=== PATIENT | male | born 1945 | race Caucasian/White ===

== ENCOUNTER → 2017-06-24 | Outpatient (CLI) | payer MEDICARE, OTHER ==
[2017-06-24 10:24] LABS: HEMATOCRIT 39.7 % (42.0-52.0); MEAN CORPUSCULAR HEMOGLOBIN 31.8 pg (27.0-33.0); MEAN CORPUSCULAR HGB CONC 32.7 g/dl (32.0-36.5); MEAN CORPUSCULAR VOLUME 97.1 fl (80.0-96.0); PLATELET COUNT, AUTOMATED 178 10^3/uL (150-450); RED BLOOD COUNT 4.09 10^6/uL (4.30-6.10); RED CELL DISTRIBUTION WIDTH 13.8 % (11.5-14.5); WHITE BLOOD COUNT 6.7 10^3/uL (4.0-10.0)
[2017-06-24 10:38] LABS: INR 1.27; PROTHROMBIN TIME 16.2 SECONDS (12.4-14.5)
[2017-06-24 10:53] LABS: ALBUMIN 3.7 GM/DL (3.2-5.2); ALBUMIN/GLOBULIN RATIO 1.32 (1.00-1.93); ALKALINE PHOSPHATASE 61 U/L (45-117); ALT/SGPT 26 U/L (12-78); ANION GAP 7 MEQ/L (8-16); AST/SGOT 16 U/L (7-37); BLOOD UREA NITROGEN 18 MG/DL (7-18); CALCIUM LEVEL 9.1 MG/DL (8.8-10.2); CARBON DIOXIDE LEVEL 30 MEQ/L (21-32); CHLORIDE LEVEL 107 MEQ/L (98-107); CHOLESTEROL LEVEL 136 MG/DL (<200); CHOLESTEROL RISK RATIO 1.658 (<5); CREATININE FOR GFR 1.07 MG/DL (0.70-1.30); GLOMERULAR FILTRATION RATE > 60.0 (>49); GLUCOSE, FASTING 110 MG/DL (80-110); HDL CHOLESTEROL 82 MG/DL (>40); LDL CHOLESTEROL 34.2 MG/DL (<100); NON-HDL-C 54 MG/DL; POTASSIUM SERUM 4.3 MEQ/L (3.5-5.1); SODIUM LEVEL 144 MEQ/L (136-145); TOTAL PROTEIN 6.5 GM/DL (6.4-8.2); TRIGLYCERIDES LEVEL 99 MG/DL (<150)
== END ==
LOC: M LAB 09:09
DX: I10 Essential (primary) hypertension (principal); E78.00 Pure hypercholesterolemia, unspecified; Z79.01 Long term (current) use of anticoagulants
CPT/HCPCS: 71046

== ENCOUNTER 2017-07-28 06:43 | Day surgery (SDC) | payer MEDICARE, OTHER ==
[~2017-07-28 06:43] MED LIST: ACETAMINOPHEN 325 MG TAB PO
[2017-07-28] MEDS ORDERED: PHENYLEPHRINE HCL 10 % OPHTH. SOL 5ML OD (07:00)
[2017-07-28] MEDS ORDERED: PROPARACAINE 0.5% OPHTH SOL 15ML OD (07:01)
[2017-07-28] MEDS: CYCLOPENTOLATE 2% OPHTH SOLN 2ML BTL OD (07:38)
[2017-07-28] MEDS: PHENYLEPHRINE 2.5% OPHTH SOL 2ML OD (07:38)
[2017-07-28] MEDS: TROPICAMIDE 1% OPHTH SOLN 2ML OD (07:38)
[2017-07-28] MEDS: LIDOCAINE 3.5 % 1ML OPHTH TOPICAL GEL OU (07:39)
[2017-07-28] MEDS: OFLOXACIN 0.3 % (OCUFLOX) OPTH SOL 5ML OD (07:39)
[2017-07-28] MEDS: LIDOCAINE 1% SDV 5 ML VIAL As Ordered (08:48)
[2017-07-28] MEDS: POVIDONE-IODINE 5% OPHTH PREP SOL 30ML As Ordered (08:48)
[2017-07-28] MEDS: HEALON DUET (HEALON 10MG/ML 0.55ML & HEALON ENDOCOAT 30MG/ML 0.85ML) As Ordered (08:48)
[2017-07-28] MEDS: ACETYLCHOLINE OPHTH SOLN 1% 2ML (MIOCHOL-E) As Ordered (08:48)
[2017-07-28] MEDS: BALANCED SALT IRRIGATION SOLUTION 500ML BAG (FOR OR EYE MACHINE) As Ordered (08:49)
[2017-07-28] MEDS: CEFUROXIME 1MG/0.1ML INTRACAMERAL INJ As Ordered (08:49)
[2017-07-28] MEDS ORDERED: fentaNYL 100 MCG/2 ML INJECTION (J3010) As Ordered (09:08)
[2017-07-28] MEDS ORDERED: MIDAZOLAM INJ 2 MG/2 ML VIAL (J2250) As Ordered (09:08)
[2017-07-28] MEDS ORDERED: TRIMETHOBENZAMIDE 300 MG CAP PO (09:30)
[2017-07-28] MEDS: AcetaZOLAMIDE 500 MG ER CAP PO (09:30)
[2017-07-28] MEDS: KETOROLAC 0.5% OPHTH SOLN OD (09:35)
== END 2017-07-28 09:55 | disposition home or self-care (01) ==
LOC: M SDC 06:43
DX: H25.11 Age-related nuclear cataract, right eye (principal); I48.91 Unspecified atrial fibrillation; I10 Essential (primary) hypertension; Z95.810 Presence of automatic (implantable) cardiac defibrillator; E78.5 Hyperlipidemia, unspecified; Z79.01 Long term (current) use of anticoagulants; Z79.899 Other long term (current) drug therapy; G47.30 Sleep apnea, unspecified
CPT/HCPCS: 66984

== ENCOUNTER 2017-09-01 08:51 | Day surgery (SDC) | payer MEDICARE, OTHER ==
[~2017-09-01 08:51] MED LIST changes: +MIDAZOLAM INJ 2 MG/2 ML VIAL (J2250) As Ordered; +PHENYLEPHRINE HCL 10 % OPHTH. SOL 5ML OS; +PROPARACAINE 0.5% OPHTH SOL 15ML OS; +fentaNYL 100 MCG/2 ML INJECTION (J3010) As Ordered
[2017-09-01] MEDS ORDERED: TRIMETHOBENZAMIDE 300 MG CAP PO (09:00)
[2017-09-01] MEDS ORDERED: TROPICAMIDE 1% OPHTH SOLN 2ML As Ordered (09:32)
[2017-09-01] MEDS ORDERED: PHENYLEPHRINE 2.5% OPHTH SOL 2ML As Ordered (09:32)
[2017-09-01] MEDS ORDERED: OFLOXACIN 0.3 % (OCUFLOX) OPTH SOL 5ML As Ordered (09:32)
[2017-09-01] MEDS ORDERED: CYCLOPENTOLATE 2% OPHTH SOLN 2ML BTL As Ordered (09:32)
[2017-09-01] MEDS: TROPICAMIDE 1% OPHTH SOLN 2ML OS (09:40)
[2017-09-01] MEDS: CYCLOPENTOLATE 2% OPHTH SOLN 2ML BTL OS (09:40)
[2017-09-01] MEDS: PHENYLEPHRINE 2.5% OPHTH SOL 2ML OS (09:40)
[2017-09-01] MEDS: LIDOCAINE 3.5 % 1ML OPHTH TOPICAL GEL OU (09:41)
[2017-09-01] MEDS: OFLOXACIN 0.3 % (OCUFLOX) OPTH SOL 5ML OS (09:41)
[2017-09-01] MEDS: BALANCED SALT IRRIGATION SOLUTION 500ML BAG (FOR OR EYE MACHINE) As Ordered (11:17)
[2017-09-01] MEDS: POVIDONE-IODINE 5% OPHTH PREP SOL 30ML As Ordered (11:17)
[2017-09-01] MEDS: CEFUROXIME 1MG/0.1ML INTRACAMERAL INJ As Ordered (11:18)
[2017-09-01] MEDS: HEALON DUET (HEALON 10MG/ML 0.55ML & HEALON ENDOCOAT 30MG/ML 0.85ML) As Ordered (11:18)
[2017-09-01] MEDS: LIDOCAINE 1% SDV 5 ML VIAL As Ordered (11:18)
[2017-09-01] MEDS: KETOROLAC 0.5% OPHTH SOLN OS (11:54)
[2017-09-01] MEDS: AcetaZOLAMIDE 500 MG ER CAP PO (11:54)
== END 2017-09-01 12:12 | disposition home or self-care (01) ==
LOC: M SDC 08:51
DX: H25.12 Age-related nuclear cataract, left eye (principal); I48.91 Unspecified atrial fibrillation; I10 Essential (primary) hypertension; E78.5 Hyperlipidemia, unspecified; G47.30 Sleep apnea, unspecified; Z79.02 Long term (current) use of antithrombotics/antiplatelets; Z79.899 Other long term (current) drug therapy; Z95.810 Presence of automatic (implantable) cardiac defibrillator
CPT/HCPCS: 66984

== ENCOUNTER 2022-04-21 21:38 | Inpatient (IN) | payer MEDICARE, OTHER ==
[~2022-04-21] VITALS: Ht 180.3 cm; Wt 86.4 kg
[~2022-04-21 21:38] MED LIST changes: -ACETAMINOPHEN 325 MG TAB PO; +AMIO200T49 PO; +ATOR1TAB19 PO; +CORE12.5 PO; +KLOR1CAP PO; -MIDAZOLAM INJ 2 MG/2 ML VIAL (J2250) As Ordered; +MULT1TAB10 PO; +OMEP1CAP73 PO; -PHENYLEPHRINE HCL 10 % OPHTH. SOL 5ML OS; +PRAD150C6 PO; +PRESCAP PO; -PROPARACAINE 0.5% OPHTH SOL 15ML OS; +RAMI1CAP26 PO; +TORS20TA2 PO; +VITA100067 PO; -fentaNYL 100 MCG/2 ML INJECTION (J3010) As Ordered
[2022-04-21] MEDS ORDERED: MORPHINE 4 MG/ML 1ML VIAL/SYRINGE IV ONE (23:05)
[2022-04-21 23:18] LABS: BASO # 0.1 10^3/uL (0.0-0.2); BASO % 0.6 % (0.0-1.0); EOS # 0.3 10^3/uL (0.0-0.5); EOS % 3.4 % (0.0-3.0); HEMOGLOBIN 11.7 g/dl (13.5-17.5); LYMPH # 0.9 10^3/uL (1.5-5.0); MEAN CORPUSCULAR HEMOGLOBIN 32.3 pg (27.0-33.0); MEAN CORPUSCULAR HGB CONC 32.5 g/dl (32.0-36.5); MEAN CORPUSCULAR VOLUME 99.4 fl (80.0-96.0); MONO # 0.8 10^3/uL (0.0-0.8); MONO % 8.4 % (2.0-8.0); NEUTROPHILS # 7.4 10^3/uL (1.5-8.5); NEUTROPHILS % 78.3 % (36.0-66.0); PLATELET COUNT, AUTOMATED 210 10^3/uL (150-450); RED BLOOD COUNT 3.62 10^6/uL (4.30-6.10); WHITE BLOOD COUNT 9.5 10^3/uL (4.0-10.0)
[2022-04-21] MEDS ORDERED: MORPHINE 2 MG/ML 1ML VIAL IV PRN (23:30)
[2022-04-21] MEDS ORDERED: MORPHINE 4 MG/ML 1ML VIAL/SYRINGE IV PRN (23:30)
[2022-04-21 23:35] LABS: INR 1.51; PROTHROMBIN TIME 18.5 SECONDS (12.5-14.5)
[2022-04-21] MEDS ORDERED: ONDANSETRON 4MG 2ML VIAL IV PRN (23:35)
[2022-04-21 23:36] LABS: PARTIAL THROMBOPLASTIN TIME 30.5 SECONDS (24.8-34.2)
[2022-04-21] MEDS ORDERED: LR 1,000 ML IV SCH (23:59)
[2022-04-22] VITALS (9 sets, daily range): BP systolic 90–109; BP diastolic 40–80; O2SAT 93
[2022-04-22 01:01] LABS: BLOOD UREA NITROGEN 21 MG/DL (7-18); CALCIUM LEVEL 8.5 MG/DL (8.8-10.2); CARBON DIOXIDE LEVEL 29 MEQ/L (21-32); CHLORIDE LEVEL 107 MEQ/L (98-107); CK-MB VALUE MASS < 1.0 NG/ML (<3.6); CPK CREATINE PHOSPHOKINASE 106 U/L (39-308); CREATININE FOR GFR 1.24 MG/DL (0.70-1.30); GLOMERULAR FILTRATION RATE > 60.0 (>42); GLUCOSE, FASTING 129 MG/DL (70-100); MB/CK RELATIVE INDEX 0.94 (< OR =4); NT-PRO BNP 519 PG/ML (<125); POTASSIUM SERUM 3.8 MEQ/L (3.5-5.1); SODIUM LEVEL 143 MEQ/L (136-145)
[2022-04-22] MEDS ORDERED: FAMO1TAB11 PO (04:30)
[2022-04-22] MEDS ORDERED: POTA1TAB21 PO (04:30)
[2022-04-22] MEDS ORDERED: HOME MED LIST COMPLETE! XX SCH (04:30)
[2022-04-22] MEDS ORDERED: XARE20TA PO (04:30)
[2022-04-22] MEDS ORDERED: VITA200032 PO (04:30)
[2022-04-22] MEDS ORDERED: JARD1TAB PO (04:30)
[2022-04-22] MEDS ORDERED: ENTR1TAB4 PO (04:30)
[2022-04-22] MEDS ORDERED: ROSU5TAB5 PO (04:30)
[2022-04-22] MEDS: CARVedilol 12.5 MG TAB PO SCH ×2 (09:00→20:46)
[2022-04-22] MEDS: TORSEMIDE 20 MG TAB PO SCH (09:00)
[2022-04-22] MEDS: AMIODARONE 200 MG TAB (PACERONE) PO SCH (09:00)
[2022-04-22] MEDS: ENTRESTO 97-103MG TABLET (SACUBITRIL/VALSARTAN) PO SCH (09:00)
[2022-04-22] MEDS ORDERED: ONDANSETRON 4MG 2ML VIAL As Ordered ONE (09:24)
[2022-04-22] MEDS ORDERED: propofoL 200 MG/20 ML VIAL As Ordered ONE (09:24)
[2022-04-22] MEDS ORDERED: dexameTHASONE 4 MG/ML 1ML VIAL (J1100 PER 1MG) As Ordered ONE (09:24)
[2022-04-22] MEDS ORDERED: SUGAMMADEX SODIUM 500 MG/5 ML VIAL (BRIDION) As Ordered ONE (09:24)
[2022-04-22] MEDS ORDERED: fentaNYL 100 MCG/2 ML INJECTION As Ordered ONE (09:24)
[2022-04-22] MEDS ORDERED: ROCURONIUM BROMIDE 50 MG/5 ML VIAL As Ordered ONE (09:24)
[2022-04-22] MEDS ORDERED: LIDOCAINE 2% 100MG/5ML SDV (FOR ANES.) As Ordered ONE (09:25)
[2022-04-22] MEDS ORDERED: ceFAZolin 2 GM/D5W 50 ML IV BAG (J0690 PER 500MG) As Ordered ONE (10:19)
[2022-04-22] MEDS ORDERED: PHENYLephrine 500MCG 5ML (100MCG/ML) SYRINGE As Ordered ONE (10:41)
[2022-04-22] MEDS ORDERED: PHENYLEPHRINE 10MG/ML 1ML VIAL As Ordered ONE (10:41)
[2022-04-22] MEDS ORDERED: ePHEDrine SULFATE 25 MG/5 ML(5MG/ML) SYRINGE As Ordered ONE (10:41)
[2022-04-22] MEDS ORDERED: ACETAMINOPHEN 1000MG 100ML IV BAG As Ordered ONE (10:49)
[2022-04-22] MEDS ORDERED: LR 1,000 ML IV SCH (11:30)
[2022-04-22] MEDS ORDERED: ONDANSETRON 4MG 2ML VIAL IV PRN (11:30)
[2022-04-22] MEDS ORDERED: MORPHINE 2 MG/ML 1ML VIAL IV PRN (11:30)
[2022-04-22] MEDS: oxyCODONE 5MG TAB PO PRN ×2 (12:14→13:02)
[2022-04-22] MEDS: fentaNYL 100 MCG/2 ML INJECTION IV PRN ×2 (12:14→12:47)
[2022-04-22] MEDS ORDERED: LR 1,000 ML IV ONE (14:10)
[2022-04-22] MEDS: FAMOTIDINE 20 MG TAB PO SCH ×2 (14:30→20:45)
[2022-04-22] MEDS: POTASSIUM CHLORIDE 10MEQ SR TABLET PO SCH ×2 (14:30→20:45)
[2022-04-22] MEDS: DOCUSATE SODIUM 100MG CAPSULE PO SCH ×2 (14:30→20:45)
[2022-04-22] MEDS: LR 1,000 ML IV SCH (17:25)
[2022-04-22] MEDS: ACETAMINOPHEN TAB 650MG DOSE (2X325MG) PO PRN (20:52)
[2022-04-22] MEDS ORDERED: ROSUVASTATIN 10 MG TAB (CRESTOR) PO SCH (21:00)
[2022-04-22] MEDS ORDERED: RIVAROXABAN 20MG TAB (XARELTO) PO SCH (21:00)
[2022-04-23] MEDS: ACETAMINOPHEN TAB 650MG DOSE (2X325MG) PO PRN ×2 (01:16→09:17)
[2022-04-23 01:55] VITALS: O2SAT 95
[2022-04-23 02:00] VITALS: BP 114/55
[2022-04-23 06:00] VITALS: BP_SYST 84; BP_SYST 94; BP_DIAS 46
[2022-04-23] MEDS: LR 1,000 ML IV SCH (06:10)
[2022-04-23 08:05] VITALS: BP 102/81
[2022-04-23 08:45] VITALS: BP 102/81
[2022-04-23] MEDS: CARVedilol 12.5 MG TAB PO SCH (08:45)
[2022-04-23] MEDS: TORSEMIDE 20 MG TAB PO SCH (09:00)
[2022-04-23] MEDS: ENTRESTO 97-103MG TABLET (SACUBITRIL/VALSARTAN) PO SCH (09:00)
[2022-04-23] MEDS: DOCUSATE SODIUM 100MG CAPSULE PO SCH (09:16)
[2022-04-23] MEDS: FAMOTIDINE 20 MG TAB PO SCH (09:16)
[2022-04-23] MEDS: POTASSIUM CHLORIDE 10MEQ SR TABLET PO SCH (09:17)
[2022-04-23] MEDS: AMIODARONE 200 MG TAB (PACERONE) PO SCH (09:17)
[2022-04-23 09:20] VITALS: BP 96/52
[2022-04-23] MEDS ORDERED: traMADol 50 MG TAB PO ONE (12:25)
== END 2022-04-23 12:25 | DRG 481 ==
LOC: EDBD 21:38 → M ED 21:38 → M ED INP 23:30 → M MS5PR 04-22 14:00 → ENRESERV 04-22 14:30 → CANRESERV 04-22 14:30
PROVIDERS: ADMIT Family Medicine; ATTEND Internal Medicine
PROC: BQ10ZZZ Fluoroscopy of Right Hip (ICD-10-PCS; 2022-04-22)
PROC: 0QS606Z Reposition Right Upper Femur with Intramedullary Internal Fixation Device, Open Approach (ICD-10-PCS; principal; 2022-04-22 15:00)
DX: S72.141A Displaced intertrochanteric fracture of right femur, initial encounter for closed fracture (principal); I50.22 Chronic systolic (congestive) heart failure; I48.91 Unspecified atrial fibrillation; Z95.810 Presence of automatic (implantable) cardiac defibrillator; I25.10 Atherosclerotic heart disease of native coronary artery without angina pectoris; I11.0 Hypertensive heart disease with heart failure; E78.5 Hyperlipidemia, unspecified; W10.8XXA Fall (on) (from) other stairs and steps, initial encounter; Y92.009 Unspecified place in unspecified non-institutional (private) residence as the place of occurrence of the external cause; Z98.49 Cataract extraction status, unspecified eye; K21.9 Gastro-esophageal reflux disease without esophagitis; Z79.01 Long term (current) use of anticoagulants; Z79.899 Other long term (current) drug therapy; Z20.822 Contact with and (suspected) exposure to COVID-19

== ENCOUNTER 2022-04-23 13:40 | Inpatient (IN) | payer MEDICARE, OTHER ==
[~2022-04-23] VITALS: Ht 180.3 cm; Wt 122.8 kg
[2022-04-23 13:35] VITALS: BP 126/58
[~2022-04-23 13:40] MED LIST changes: +ENTR1TAB4 PO; +FAMO1TAB11 PO; +JARD1TAB PO; +POTA1TAB21 PO; +ROSU5TAB5 PO; +VITA200032 PO; +XARE20TA PO
[2022-04-23 14:00] VITALS: BP 114/55
[2022-04-23] MEDS ORDERED: DEXTROSE 50% 50 ML SYRINGE IV PRN (14:55)
[2022-04-23] MEDS ORDERED: GLUCAGON INJ 1MG VIAL SC PRN (14:55)
[2022-04-23] MEDS ORDERED: GLUCOSE 4GM CHEW TABLET PO PRN (14:55)
[2022-04-23] MEDS ORDERED: HOME MED LIST COMPLETE! XX SCH (15:05)
[2022-04-23] MEDS ORDERED: PILL CUTTER 1 EACH XX PRN (15:25)
[2022-04-23] MEDS: REMEDY PHYTOPLEX Z-GUARD PASTE 113GM TUBE (FROM STOREROOM PRODUCT) TOP SCH ×2 (16:00→21:00)
[2022-04-23] MEDS: ACETAMINOPHEN 500 MG TAB PO SCH ×2 (16:27→21:00)
[2022-04-23] MEDS ORDERED: INSULIN LISPRO (NovoLOG) PER UNIT SC SCH ×2 (17:30→21:00)
[2022-04-23 18:00] VITALS: BP 102/52
[2022-04-23] MEDS: RIVAROXABAN 20MG TAB (XARELTO) PO SCH (18:50)
[2022-04-23] MEDS: CARVedilol 6.25 MG TAB PO SCH (20:54)
[2022-04-23] MEDS: ROSUVASTATIN 10 MG TAB (CRESTOR) PO SCH (20:57)
[2022-04-23] MEDS: DOCUSATE SODIUM 100MG CAPSULE PO SCH (20:57)
[2022-04-23] MEDS: FAMOTIDINE 20 MG TAB PO SCH (20:57)
[2022-04-23] MEDS: POTASSIUM CHLORIDE 10MEQ SR TABLET PO SCH (20:57)
[2022-04-23] MEDS: SENNA 8.6 MG TAB (SENOKOT) PO SCH (20:57)
[2022-04-23] MEDS: RAMELTEON 8 MG TAB (ROZEREM) PO PRN (20:57)
[2022-04-24 05:53] LABS: BASO # 0.1 10^3/uL (0.0-0.2); BASO % 0.5 % (0.0-1.0); EOS # 0.2 10^3/uL (0.0-0.5); EOS % 1.2 % (0.0-3.0); HEMATOCRIT 28.8 % (42.0-52.0); HEMOGLOBIN 8.8 g/dl (13.5-17.5); LYMPH # 1.5 10^3/uL (1.5-5.0); LYMPH % 11.9 % (24.0-44.0); MEAN CORPUSCULAR HEMOGLOBIN 31.8 pg (27.0-33.0); MEAN CORPUSCULAR HGB CONC 30.6 g/dl (32.0-36.5); MONO % 14.8 % (2.0-8.0); NEUTROPHILS # 8.7 10^3/uL (1.5-8.5); NEUTROPHILS % 70.6 % (36.0-66.0); PLATELET COUNT, AUTOMATED 208 10^3/uL (150-450); RED BLOOD COUNT 2.77 10^6/uL (4.30-6.10); WHITE BLOOD COUNT 12.3 10^3/uL (4.0-10.0)
[2022-04-24 06:00] VITALS: BP 114/54
[2022-04-24 06:37] LABS: ALBUMIN 2.5 GM/DL (3.2-5.2); ALKALINE PHOSPHATASE 50 U/L (45-117); ALT/SGPT 36 U/L (12-78); AST/SGOT 48 U/L (7-37); BLOOD UREA NITROGEN 20 MG/DL (7-18); CALCIUM LEVEL 8.6 MG/DL (8.8-10.2); CARBON DIOXIDE LEVEL 28 MEQ/L (21-32); CHLORIDE LEVEL 111 MEQ/L (98-107); GLOMERULAR FILTRATION RATE > 60.0 (>42); GLUCOSE, FASTING 146 MG/DL (70-100); MONO # 1.8 10^3/uL (0.0-0.8); POTASSIUM SERUM 4.6 MEQ/L (3.5-5.1); SODIUM LEVEL 143 MEQ/L (136-145); TOTAL PROTEIN 5.3 GM/DL (6.4-8.2)
[2022-04-24] MEDS: REMEDY PHYTOPLEX Z-GUARD PASTE 113GM TUBE (FROM STOREROOM PRODUCT) TOP SCH ×3 (09:00→20:25)
[2022-04-24] MEDS ORDERED: TORSEMIDE 20 MG TAB PO SCH (09:00)
[2022-04-24] MEDS: CARVedilol 6.25 MG TAB PO SCH (09:52)
[2022-04-24] MEDS: AMIODARONE 200 MG TAB (PACERONE) PO SCH (09:52)
[2022-04-24] MEDS: DOCUSATE SODIUM 100MG CAPSULE PO SCH ×2 (09:52→20:23)
[2022-04-24] MEDS: POTASSIUM CHLORIDE 10MEQ SR TABLET PO SCH ×2 (09:52→20:24)
[2022-04-24] MEDS: FAMOTIDINE 20 MG TAB PO SCH ×2 (09:52→20:24)
[2022-04-24] MEDS: ACETAMINOPHEN 500 MG TAB PO SCH ×3 (09:53→21:00)
[2022-04-24] MEDS: oxyCODONE 5MG TAB PO PRN ×4 (09:57→20:25)
[2022-04-24] MEDS: TORSEMIDE 20 MG TAB PO SCH (12:00)
[2022-04-24 12:54] VITALS: BP 104/56
[2022-04-24] MEDS ORDERED: GLUCOSE 4GM CHEW TABLET PO PRN (12:55)
[2022-04-24] MEDS ORDERED: GLUCAGON INJ 1MG VIAL SC PRN (12:55)
[2022-04-24] MEDS ORDERED: DEXTROSE 50% 50 ML SYRINGE IV PRN (12:55)
[2022-04-24 13:55] VITALS: BP 111/56
[2022-04-24] MEDS: INSULIN LISPRO (NovoLOG) PER UNIT SC SCH ×2 (17:30→20:25)
[2022-04-24] MEDS: RIVAROXABAN 20MG TAB (XARELTO) PO SCH (17:44)
[2022-04-24 20:00] VITALS: BP 99/54
[2022-04-24] MEDS: RAMELTEON 8 MG TAB (ROZEREM) PO PRN (20:23)
[2022-04-24] MEDS: SENNA 8.6 MG TAB (SENOKOT) PO SCH (20:24)
[2022-04-24] MEDS: ROSUVASTATIN 10 MG TAB (CRESTOR) PO SCH (20:24)
[2022-04-24] MEDS: CARVedilol 12.5 MG TAB PO SCH (20:26)
[2022-04-25 06:00] VITALS: BP 105/55
[2022-04-25] MEDS: oxyCODONE 5MG TAB PO PRN ×4 (06:51→17:03)
[2022-04-25] MEDS: INSULIN LISPRO (NovoLOG) PER UNIT SC SCH ×4 (07:30→21:00)
[2022-04-25] MEDS: CARVedilol 12.5 MG TAB PO SCH ×2 (09:00→21:00)
[2022-04-25] MEDS: REMEDY PHYTOPLEX Z-GUARD PASTE 113GM TUBE (FROM STOREROOM PRODUCT) TOP SCH ×3 (09:00→21:00)
[2022-04-25] MEDS: DOCUSATE SODIUM 100MG CAPSULE PO SCH ×2 (09:56→21:32)
[2022-04-25] MEDS: POTASSIUM CHLORIDE 10MEQ SR TABLET PO SCH ×2 (09:57→21:30)
[2022-04-25] MEDS: FAMOTIDINE 20 MG TAB PO SCH ×2 (09:57→21:32)
[2022-04-25] MEDS: AMIODARONE 200 MG TAB (PACERONE) PO SCH (09:58)
[2022-04-25] MEDS: ACETAMINOPHEN 500 MG TAB PO SCH ×3 (09:58→21:32)
[2022-04-25] MEDS: TORSEMIDE 20 MG TAB PO SCH (11:58)
[2022-04-25 11:59] VITALS: BP 96/54
[2022-04-25 14:00] VITALS: BP 106/51
[2022-04-25] MEDS: RIVAROXABAN 20MG TAB (XARELTO) PO SCH (17:03)
[2022-04-25 20:00] VITALS: BP 98/56
[2022-04-25] MEDS: SENNA 8.6 MG TAB (SENOKOT) PO SCH (21:32)
[2022-04-25] MEDS: ROSUVASTATIN 10 MG TAB (CRESTOR) PO SCH (21:33)
[2022-04-25] MEDS: MIRALAX *UNIT DOSE* 17GM PACKET PO PRN (21:34)
[2022-04-26 06:00] VITALS: BP 110/58
[2022-04-26] MEDS: DOCUSATE SODIUM 100MG CAPSULE PO SCH ×2 (08:54→21:05)
[2022-04-26] MEDS: FAMOTIDINE 20 MG TAB PO SCH ×2 (08:55→21:05)
[2022-04-26] MEDS: POTASSIUM CHLORIDE 10MEQ SR TABLET PO SCH ×2 (08:55→11:44)
[2022-04-26] MEDS: AMIODARONE 200 MG TAB (PACERONE) PO SCH (08:55)
[2022-04-26] MEDS: CARVedilol 12.5 MG TAB PO SCH ×2 (08:56→21:06)
[2022-04-26] MEDS: ACETAMINOPHEN 500 MG TAB PO SCH ×3 (08:56→21:05)
[2022-04-26] MEDS: REMEDY PHYTOPLEX Z-GUARD PASTE 113GM TUBE (FROM STOREROOM PRODUCT) TOP SCH ×3 (08:57→21:07)
[2022-04-26] MEDS: MIRALAX *UNIT DOSE* 17GM PACKET PO PRN (11:43)
[2022-04-26] MEDS: SENNA 8.6 MG TAB (SENOKOT) PO SCH ×2 (11:43→21:07)
[2022-04-26] MEDS: TORSEMIDE 20 MG TAB PO SCH (11:44)
[2022-04-26 11:49] VITALS: BP 105/53
[2022-04-26 11:53] LABS: BLOOD UREA NITROGEN 22 MG/DL (7-18); CALCIUM LEVEL 8.1 MG/DL (8.8-10.2); CARBON DIOXIDE LEVEL 28 MEQ/L (21-32); CHLORIDE LEVEL 109 MEQ/L (98-107); CREATININE FOR GFR 0.93 MG/DL (0.70-1.30); GLOMERULAR FILTRATION RATE > 60.0 (>42); GLUCOSE, FASTING 131 MG/DL (70-100); POTASSIUM SERUM 4.6 MEQ/L (3.5-5.1); SODIUM LEVEL 140 MEQ/L (136-145)
[2022-04-26 14:00] VITALS: BP 113/55
[2022-04-26] MEDS: oxyCODONE 5MG TAB PO PRN ×2 (14:26→21:06)
[2022-04-26] MEDS: RIVAROXABAN 20MG TAB (XARELTO) PO SCH (17:58)
[2022-04-26 20:00] VITALS: BP 110/64
[2022-04-26] MEDS: RAMELTEON 8 MG TAB (ROZEREM) PO PRN (21:05)
[2022-04-26] MEDS: ROSUVASTATIN 10 MG TAB (CRESTOR) PO SCH (21:06)
[2022-04-27 05:54] VITALS: BP 98/60
[2022-04-27 05:56] VITALS: BP_SYST 142; BP_SYST 98; BP_DIAS 60; BP_DIAS 82
[2022-04-27] MEDS: FAMOTIDINE 20 MG TAB PO SCH ×2 (08:30→20:57)
[2022-04-27] MEDS: AMIODARONE 200 MG TAB (PACERONE) PO SCH (08:30)
[2022-04-27] MEDS: ACETAMINOPHEN 500 MG TAB PO SCH ×3 (08:30→20:56)
[2022-04-27] MEDS: CARVedilol 12.5 MG TAB PO SCH ×2 (08:30→20:57)
[2022-04-27] MEDS: DOCUSATE SODIUM 100MG CAPSULE PO SCH ×2 (08:30→20:56)
[2022-04-27] MEDS: SENNA 8.6 MG TAB (SENOKOT) PO SCH ×2 (08:30→20:56)
[2022-04-27] MEDS: oxyCODONE 5MG TAB PO PRN ×2 (08:33→17:18)
[2022-04-27] MEDS: REMEDY PHYTOPLEX Z-GUARD PASTE 113GM TUBE (FROM STOREROOM PRODUCT) TOP SCH ×3 (09:00→19:53)
[2022-04-27 11:09] VITALS: BP 124/57
[2022-04-27] MEDS: TORSEMIDE 20 MG TAB PO SCH (11:09)
[2022-04-27] MEDS: POTASSIUM CHLORIDE 10MEQ SR TABLET PO SCH (11:10)
[2022-04-27 12:42] LABS: BASO # 0.1 10^3/uL (0.0-0.2); BASO % 0.8 % (0.0-1.0); EOS # 0.6 10^3/uL (0.0-0.5); EOS % 5.9 % (0.0-3.0); HEMATOCRIT 28.5 % (42.0-52.0); HEMOGLOBIN 8.7 g/dl (13.5-17.5); LYMPH # 0.9 10^3/uL (1.5-5.0); MEAN CORPUSCULAR HEMOGLOBIN 31.8 pg (27.0-33.0); MEAN CORPUSCULAR HGB CONC 30.5 g/dl (32.0-36.5); MONO # 1.2 10^3/uL (0.0-0.8); MONO % 12.7 % (2.0-8.0); NEUTROPHILS # 6.4 10^3/uL (1.5-8.5); NEUTROPHILS % 68.4 % (36.0-66.0); PLATELET COUNT, AUTOMATED 296 10^3/uL (150-450); RED BLOOD COUNT 2.74 10^6/uL (4.30-6.10); WHITE BLOOD COUNT 9.3 10^3/uL (4.0-10.0)
[2022-04-27 13:45] LABS: BLOOD UREA NITROGEN 27 MG/DL (7-18); CALCIUM LEVEL 8.6 MG/DL (8.8-10.2); CARBON DIOXIDE LEVEL 27 MEQ/L (21-32); CHLORIDE LEVEL 107 MEQ/L (98-107); CREATININE FOR GFR 1.04 MG/DL (0.70-1.30); GLOMERULAR FILTRATION RATE > 60.0 (>42); GLUCOSE, FASTING 125 MG/DL (70-100); POTASSIUM SERUM 4.7 MEQ/L (3.5-5.1); SODIUM LEVEL 140 MEQ/L (136-145)
[2022-04-27 14:00] VITALS: BP 127/61
[2022-04-27 14:40] LABS: HEMOGLOBIN A1c 5.5 %
[2022-04-27] MEDS: RIVAROXABAN 20MG TAB (XARELTO) PO SCH (17:18)
[2022-04-27 20:00] VITALS: BP 148/67
[2022-04-27] MEDS: RAMELTEON 8 MG TAB (ROZEREM) PO PRN (20:56)
[2022-04-27] MEDS: ROSUVASTATIN 10 MG TAB (CRESTOR) PO SCH (20:57)
[2022-04-28 06:00] VITALS: BP 127/62
[2022-04-28] MEDS: SENNA 8.6 MG TAB (SENOKOT) PO SCH ×2 (07:40→20:39)
[2022-04-28] MEDS: CARVedilol 12.5 MG TAB PO SCH ×2 (07:40→20:40)
[2022-04-28] MEDS: FAMOTIDINE 20 MG TAB PO SCH ×2 (07:41→20:39)
[2022-04-28] MEDS: oxyCODONE 5MG TAB PO PRN ×2 (07:41→20:43)
[2022-04-28] MEDS: DOCUSATE SODIUM 100MG CAPSULE PO SCH ×2 (07:41→20:39)
[2022-04-28] MEDS: AMIODARONE 200 MG TAB (PACERONE) PO SCH (07:41)
[2022-04-28] MEDS: ACETAMINOPHEN 500 MG TAB PO SCH ×3 (07:44→20:39)
[2022-04-28] MEDS: MIRALAX *UNIT DOSE* 17GM PACKET PO PRN (07:44)
[2022-04-28] MEDS: REMEDY PHYTOPLEX Z-GUARD PASTE 113GM TUBE (FROM STOREROOM PRODUCT) TOP SCH ×3 (07:44→20:39)
[2022-04-28 11:31] VITALS: BP 105/51
[2022-04-28] MEDS: ENTRESTO 24-26MG TABLET (SACUBITRIL/VALSARTAN) PO SCH ×2 (11:31→20:39)
[2022-04-28] MEDS: TORSEMIDE 20 MG TAB PO SCH (11:31)
[2022-04-28 14:00] VITALS: BP 136/64
[2022-04-28] MEDS: RIVAROXABAN 20MG TAB (XARELTO) PO SCH (17:38)
[2022-04-28 20:00] VITALS: BP 122/56
[2022-04-28] MEDS: ROSUVASTATIN 10 MG TAB (CRESTOR) PO SCH (20:39)
[2022-04-28] MEDS: RAMELTEON 8 MG TAB (ROZEREM) PO PRN (20:42)
[2022-04-29 06:00] VITALS: BP 103/57
[2022-04-29 06:56] LABS: BASO # 0.1 10^3/uL (0.0-0.2); BASO % 1.2 % (0.0-1.0); EOS # 0.6 10^3/uL (0.0-0.5); EOS % 8.7 % (0.0-3.0); HEMATOCRIT 25.5 % (42.0-52.0); LYMPH # 1.1 10^3/uL (1.5-5.0); LYMPH % 16.9 % (24.0-44.0); MEAN CORPUSCULAR HEMOGLOBIN 32.3 pg (27.0-33.0); MEAN CORPUSCULAR HGB CONC 31.4 g/dl (32.0-36.5); MEAN CORPUSCULAR VOLUME 102.8 fl (80.0-96.0); MONO # 0.9 10^3/uL (0.0-0.8); MONO % 13.5 % (2.0-8.0); NEUTROPHILS # 3.8 10^3/uL (1.5-8.5); NEUTROPHILS % 56.6 % (36.0-66.0); PLATELET COUNT, AUTOMATED 296 10^3/uL (150-450); RED BLOOD COUNT 2.48 10^6/uL (4.30-6.10); WHITE BLOOD COUNT 6.8 10^3/uL (4.0-10.0)
[2022-04-29] MEDS: oxyCODONE 5MG TAB PO PRN (07:19)
[2022-04-29 07:25] LABS: BLOOD UREA NITROGEN 29 MG/DL (9-23); CALCIUM LEVEL 8.1 MG/DL (8.3-10.6); CARBON DIOXIDE LEVEL 29 MMOL/L (20-31); CHLORIDE LEVEL 104 MMOL/L (98-107); GLOMERULAR FILTRATION RATE > 60.0 (>42); GLUCOSE, FASTING 127 MG/DL (74-106); POTASSIUM SERUM 4.4 MMOL/L (3.5-5.1); SODIUM LEVEL 140 MMOL/L (136-145)
[2022-04-29 08:00] VITALS: BP 108/55
[2022-04-29] MEDS: REMEDY PHYTOPLEX Z-GUARD PASTE 113GM TUBE (FROM STOREROOM PRODUCT) TOP SCH ×3 (09:00→21:00)
[2022-04-29] MEDS: ENTRESTO 24-26MG TABLET (SACUBITRIL/VALSARTAN) PO SCH ×2 (09:00→21:00)
[2022-04-29] MEDS: CARVedilol 12.5 MG TAB PO SCH (09:00)
[2022-04-29] MEDS: DOCUSATE SODIUM 100MG CAPSULE PO SCH ×2 (09:06→21:34)
[2022-04-29] MEDS: ACETAMINOPHEN 500 MG TAB PO SCH ×3 (09:06→21:34)
[2022-04-29] MEDS: AMIODARONE 200 MG TAB (PACERONE) PO SCH (09:06)
[2022-04-29] MEDS: SENNA 8.6 MG TAB (SENOKOT) PO SCH ×2 (09:09→21:34)
[2022-04-29] MEDS: FAMOTIDINE 20 MG TAB PO SCH ×2 (09:09→21:35)
[2022-04-29] MEDS: MIRALAX *UNIT DOSE* 17GM PACKET PO PRN (09:14)
[2022-04-29] MEDS: TORSEMIDE 20 MG TAB PO SCH (11:58)
[2022-04-29 14:00] VITALS: BP 107/52
[2022-04-29] MEDS: RIVAROXABAN 20MG TAB (XARELTO) PO SCH (17:09)
[2022-04-29 18:00] VITALS: BP 108/55
[2022-04-29 20:00] VITALS: BP 108/55
[2022-04-29] MEDS: CARVedilol 3.125 MG TAB PO SCH (21:00)
[2022-04-29] MEDS: RAMELTEON 8 MG TAB (ROZEREM) PO PRN (21:36)
[2022-04-29] MEDS: ROSUVASTATIN 10 MG TAB (CRESTOR) PO SCH (21:36)
[2022-04-30 05:39] LABS: BASO # 0.1 10^3/uL (0.0-0.2); BASO % 0.6 % (0.0-1.0); EOS # 0.6 10^3/uL (0.0-0.5); EOS % 7.5 % (0.0-3.0); HEMATOCRIT 26.4 % (42.0-52.0); HEMOGLOBIN 8.1 g/dl (13.5-17.5); LYMPH # 1.4 10^3/uL (1.5-5.0); MEAN CORPUSCULAR HEMOGLOBIN 31.8 pg (27.0-33.0); MEAN CORPUSCULAR HGB CONC 30.7 g/dl (32.0-36.5); MEAN CORPUSCULAR VOLUME 103.5 fl (80.0-96.0); MONO # 1.1 10^3/uL (0.0-0.8); MONO % 12.7 % (2.0-8.0); NEUTROPHILS # 4.9 10^3/uL (1.5-8.5); NEUTROPHILS % 59.4 % (36.0-66.0); PLATELET COUNT, AUTOMATED 326 10^3/uL (150-450); RED BLOOD COUNT 2.55 10^6/uL (4.30-6.10); WHITE BLOOD COUNT 8.2 10^3/uL (4.0-10.0)
[2022-04-30 06:44] VITALS: BP 112/68
[2022-04-30] MEDS: ENTRESTO 24-26MG TABLET (SACUBITRIL/VALSARTAN) PO SCH ×2 (08:22→21:21)
[2022-04-30] MEDS: CARVedilol 3.125 MG TAB PO SCH ×2 (08:23→21:20)
[2022-04-30] MEDS: AMIODARONE 200 MG TAB (PACERONE) PO SCH (08:23)
[2022-04-30] MEDS: oxyCODONE 5MG TAB PO PRN ×2 (08:24→21:20)
[2022-04-30] MEDS: FAMOTIDINE 20 MG TAB PO SCH ×2 (08:25→21:21)
[2022-04-30] MEDS: ACETAMINOPHEN 500 MG TAB PO SCH ×3 (08:26→21:20)
[2022-04-30] MEDS: SENNA 8.6 MG TAB (SENOKOT) PO SCH ×2 (08:27→21:21)
[2022-04-30] MEDS: DOCUSATE SODIUM 100MG CAPSULE PO SCH ×2 (08:27→21:20)
[2022-04-30] MEDS: REMEDY PHYTOPLEX Z-GUARD PASTE 113GM TUBE (FROM STOREROOM PRODUCT) TOP SCH ×3 (08:27→21:23)
[2022-04-30 14:00] VITALS: BP 100/59
[2022-04-30] MEDS: TORSEMIDE 20 MG TAB PO SCH (15:00)
[2022-04-30] MEDS: RIVAROXABAN 20MG TAB (XARELTO) PO SCH (17:46)
[2022-04-30 20:00] VITALS: BP 112/59
[2022-04-30] MEDS: RAMELTEON 8 MG TAB (ROZEREM) PO PRN (21:21)
[2022-04-30] MEDS: ROSUVASTATIN 10 MG TAB (CRESTOR) PO SCH (21:22)
[2022-05-01 05:00] VITALS: BP 102/57
[2022-05-01] MEDS: oxyCODONE 5MG TAB PO SCH ×2 (06:35→11:11)
[2022-05-01] MEDS: CARVedilol 3.125 MG TAB PO SCH ×2 (09:00→21:21)
[2022-05-01] MEDS: REMEDY PHYTOPLEX Z-GUARD PASTE 113GM TUBE (FROM STOREROOM PRODUCT) TOP SCH ×3 (09:00→21:00)
[2022-05-01 09:35] LABS: BASO # 0.1 10^3/uL (0.0-0.2); BASO % 0.9 % (0.0-1.0); EOS # 0.5 10^3/uL (0.0-0.5); EOS % 6.5 % (0.0-3.0); HEMATOCRIT 29.7 % (42.0-52.0); LYMPH # 1.1 10^3/uL (1.5-5.0); LYMPH % 13.9 % (24.0-44.0); MEAN CORPUSCULAR HEMOGLOBIN 31.9 pg (27.0-33.0); MEAN CORPUSCULAR HGB CONC 30.3 g/dl (32.0-36.5); MEAN CORPUSCULAR VOLUME 105.3 fl (80.0-96.0); MONO # 0.7 10^3/uL (0.0-0.8); MONO % 8.8 % (2.0-8.0); NEUTROPHILS # 5.2 10^3/uL (1.5-8.5); NEUTROPHILS % 66.9 % (36.0-66.0); PLATELET COUNT, AUTOMATED 404 10^3/uL (150-450); RED BLOOD COUNT 2.82 10^6/uL (4.30-6.10); WHITE BLOOD COUNT 7.7 10^3/uL (4.0-10.0)
[2022-05-01 10:27] LABS: BLOOD UREA NITROGEN 23 MG/DL (9-23); CALCIUM LEVEL 8.8 MG/DL (8.3-10.6); CARBON DIOXIDE LEVEL 27 MMOL/L (20-31); CHLORIDE LEVEL 106 MMOL/L (98-107); CREATININE FOR GFR 1.01 MG/DL (0.70-1.30); GLOMERULAR FILTRATION RATE > 60.0 (>42); GLUCOSE, FASTING 158 MG/DL (74-106); SODIUM LEVEL 141 MMOL/L (136-145)
[2022-05-01] MEDS: MIRALAX *UNIT DOSE* 17GM PACKET PO PRN (11:11)
[2022-05-01] MEDS: AMIODARONE 200 MG TAB (PACERONE) PO SCH (11:11)
[2022-05-01] MEDS: DOCUSATE SODIUM 100MG CAPSULE PO SCH ×2 (11:11→21:18)
[2022-05-01] MEDS: SENNA 8.6 MG TAB (SENOKOT) PO SCH ×2 (11:12→21:21)
[2022-05-01] MEDS: FAMOTIDINE 20 MG TAB PO SCH ×2 (11:12→21:19)
[2022-05-01] MEDS: ACETAMINOPHEN 500 MG TAB PO SCH ×3 (11:13→21:00)
[2022-05-01 14:00] VITALS: BP 104/51
[2022-05-01] MEDS: TORSEMIDE 20 MG TAB PO SCH (14:50)
[2022-05-01] MEDS ORDERED: FUROSEMIDE 20 MG TAB PO ONE (15:55)
[2022-05-01] MEDS: RIVAROXABAN 20MG TAB (XARELTO) PO SCH (17:53)
[2022-05-01 20:00] VITALS: BP 119/60
[2022-05-01] MEDS: ROSUVASTATIN 10 MG TAB (CRESTOR) PO SCH (21:18)
[2022-05-01] MEDS: oxyCODONE 5MG TAB PO PRN (21:20)
[2022-05-01] MEDS: RAMELTEON 8 MG TAB (ROZEREM) PO SCH (21:21)
[2022-05-02] MEDS: traZODone 25MG PER 1/2 TABLET PO PRN (02:15)
[2022-05-02 06:00] VITALS: BP 111/60
[2022-05-02] MEDS: oxyCODONE 5MG TAB PO SCH ×2 (07:09→12:07)
[2022-05-02] MEDS: REMEDY PHYTOPLEX Z-GUARD PASTE 113GM TUBE (FROM STOREROOM PRODUCT) TOP SCH ×3 (09:00→20:47)
[2022-05-02] MEDS: SENNA 8.6 MG TAB (SENOKOT) PO SCH ×2 (09:01→20:46)
[2022-05-02] MEDS: DOCUSATE SODIUM 100MG CAPSULE PO SCH ×2 (09:01→20:46)
[2022-05-02] MEDS: CARVedilol 3.125 MG TAB PO SCH ×2 (09:02→20:47)
[2022-05-02] MEDS: FAMOTIDINE 20 MG TAB PO SCH ×2 (09:02→20:46)
[2022-05-02] MEDS: AMIODARONE 100MG TABLET (PACERONE) PO SCH (09:02)
[2022-05-02] MEDS: ACETAMINOPHEN 500 MG TAB PO SCH ×3 (09:04→20:46)
[2022-05-02 14:00] VITALS: BP 112/56
[2022-05-02] MEDS: TORSEMIDE 20 MG TAB PO SCH (15:39)
[2022-05-02] MEDS: RIVAROXABAN 20MG TAB (XARELTO) PO SCH (16:59)
[2022-05-02 20:00] VITALS: BP 118/58
[2022-05-02] MEDS: oxyCODONE 5MG TAB PO PRN (20:45)
[2022-05-02] MEDS: ROSUVASTATIN 10 MG TAB (CRESTOR) PO SCH (20:46)
[2022-05-02] MEDS: RAMELTEON 8 MG TAB (ROZEREM) PO SCH (21:53)
[2022-05-03] MEDS: traZODone 25MG PER 1/2 TABLET PO PRN (01:30)
[2022-05-03 06:00] VITALS: BP 111/54
[2022-05-03] MEDS: oxyCODONE 5MG TAB PO SCH ×2 (06:55→11:53)
[2022-05-03] MEDS: REMEDY PHYTOPLEX Z-GUARD PASTE 113GM TUBE (FROM STOREROOM PRODUCT) TOP SCH ×3 (09:00→21:00)
[2022-05-03] MEDS: AMIODARONE 100MG TABLET (PACERONE) PO SCH (09:12)
[2022-05-03] MEDS: DOCUSATE SODIUM 100MG CAPSULE PO SCH ×2 (09:12→21:39)
[2022-05-03] MEDS: FAMOTIDINE 20 MG TAB PO SCH ×2 (09:12→21:39)
[2022-05-03] MEDS: SENNA 8.6 MG TAB (SENOKOT) PO SCH ×2 (09:12→21:39)
[2022-05-03] MEDS: ACETAMINOPHEN 500 MG TAB PO SCH ×3 (09:13→21:39)
[2022-05-03] MEDS: CARVedilol 3.125 MG TAB PO SCH ×2 (09:14→21:40)
[2022-05-03 14:20] VITALS: BP 113/53
[2022-05-03] MEDS: TORSEMIDE 20 MG TAB PO SCH (15:02)
[2022-05-03] MEDS: RIVAROXABAN 20MG TAB (XARELTO) PO SCH (17:41)
[2022-05-03 19:40] VITALS: BP 114/56
[2022-05-03] MEDS: RAMELTEON 8 MG TAB (ROZEREM) PO SCH (21:39)
[2022-05-03] MEDS: oxyCODONE 5MG TAB PO PRN (21:40)
[2022-05-03] MEDS: ROSUVASTATIN 10 MG TAB (CRESTOR) PO SCH (21:41)
[2022-05-04] MEDS: traZODone 25MG PER 1/2 TABLET PO PRN (01:27)
[2022-05-04 05:47] LABS: BASO # 0.1 10^3/uL (0.0-0.2); BASO % 0.7 % (0.0-1.0); EOS # 0.4 10^3/uL (0.0-0.5); EOS % 4.9 % (0.0-3.0); HEMOGLOBIN 8.5 g/dl (13.5-17.5); LYMPH # 1.2 10^3/uL (1.5-5.0); LYMPH % 16.2 % (24.0-44.0); MEAN CORPUSCULAR HGB CONC 30.4 g/dl (32.0-36.5); MEAN CORPUSCULAR VOLUME 105.3 fl (80.0-96.0); MONO # 0.8 10^3/uL (0.0-0.8); MONO % 11.2 % (2.0-8.0); NEUTROPHILS # 4.7 10^3/uL (1.5-8.5); NEUTROPHILS % 65.5 % (36.0-66.0); PLATELET COUNT, AUTOMATED 357 10^3/uL (150-450); RED BLOOD COUNT 2.66 10^6/uL (4.30-6.10); WHITE BLOOD COUNT 7.1 10^3/uL (4.0-10.0)
[2022-05-04 06:22] LABS: CALCIUM LEVEL 7.9 MG/DL (8.3-10.6); CREATININE FOR GFR 1.46 MG/DL (0.70-1.30); GLOMERULAR FILTRATION RATE 50.2 (>42); POTASSIUM SERUM 3.5 MMOL/L (3.5-5.1)
[2022-05-04] MEDS: oxyCODONE 5MG TAB PO SCH ×2 (06:44→12:21)
[2022-05-04 07:00] VITALS: BP 128/65
[2022-05-04] MEDS: DOCUSATE SODIUM 100MG CAPSULE PO SCH ×2 (09:00→21:51)
[2022-05-04] MEDS: REMEDY PHYTOPLEX Z-GUARD PASTE 113GM TUBE (FROM STOREROOM PRODUCT) TOP SCH ×3 (09:00→21:00)
[2022-05-04] MEDS: ACETAMINOPHEN 500 MG TAB PO SCH ×3 (09:20→21:50)
[2022-05-04] MEDS: FAMOTIDINE 20 MG TAB PO SCH ×2 (09:20→21:51)
[2022-05-04] MEDS: CARVedilol 3.125 MG TAB PO SCH ×2 (09:21→21:00)
[2022-05-04] MEDS: AMIODARONE 100MG TABLET (PACERONE) PO SCH (09:21)
[2022-05-04] MEDS: SENNA 8.6 MG TAB (SENOKOT) PO SCH ×2 (09:21→21:51)
[2022-05-04 14:00] VITALS: BP 121/59
[2022-05-04] MEDS: RIVAROXABAN 20MG TAB (XARELTO) PO SCH (16:49)
[2022-05-04 20:00] VITALS: BP 109/56
[2022-05-04] MEDS: oxyCODONE 5MG TAB PO PRN (21:50)
[2022-05-04] MEDS: RAMELTEON 8 MG TAB (ROZEREM) PO SCH (21:50)
[2022-05-04] MEDS: ROSUVASTATIN 10 MG TAB (CRESTOR) PO SCH (21:51)
[2022-05-05 06:00] VITALS: BP 127/65
[2022-05-05] MEDS: oxyCODONE 5MG TAB PO SCH ×2 (06:31→12:08)
[2022-05-05 07:30] LABS: BASO # 0.1 10^3/uL (0.0-0.2); BASO % 0.9 % (0.0-1.0); EOS # 0.3 10^3/uL (0.0-0.5); EOS % 5.3 % (0.0-3.0); HEMATOCRIT 29.5 % (42.0-52.0); LYMPH % 15.7 % (24.0-44.0); MEAN CORPUSCULAR HEMOGLOBIN 32.1 pg (27.0-33.0); MEAN CORPUSCULAR HGB CONC 30.5 g/dl (32.0-36.5); MEAN CORPUSCULAR VOLUME 105.4 fl (80.0-96.0); MONO # 0.6 10^3/uL (0.0-0.8); NEUTROPHILS # 4.4 10^3/uL (1.5-8.5); PLATELET COUNT, AUTOMATED 373 10^3/uL (150-450); WHITE BLOOD COUNT 6.4 10^3/uL (4.0-10.0)
[2022-05-05 08:01] LABS: BLOOD UREA NITROGEN 25 MG/DL (9-23); CALCIUM LEVEL 8.2 MG/DL (8.3-10.6); CARBON DIOXIDE LEVEL 31 MMOL/L (20-31); CHLORIDE LEVEL 104 MMOL/L (98-107); CREATININE FOR GFR 1.24 MG/DL (0.70-1.30); GLOMERULAR FILTRATION RATE > 60.0 (>42); GLUCOSE, FASTING 130 MG/DL (74-106); POTASSIUM SERUM 3.8 MMOL/L (3.5-5.1); SODIUM LEVEL 142 MMOL/L (136-145)
[2022-05-05] MEDS: CARVedilol 3.125 MG TAB PO SCH ×2 (08:57→21:40)
[2022-05-05] MEDS: DOCUSATE SODIUM 100MG CAPSULE PO SCH ×2 (08:58→21:37)
[2022-05-05] MEDS: AMIODARONE 100MG TABLET (PACERONE) PO SCH (08:58)
[2022-05-05] MEDS: SENNA 8.6 MG TAB (SENOKOT) PO SCH ×2 (08:58→21:37)
[2022-05-05] MEDS: FAMOTIDINE 20 MG TAB PO SCH ×2 (08:58→21:39)
[2022-05-05] MEDS: REMEDY PHYTOPLEX Z-GUARD PASTE 113GM TUBE (FROM STOREROOM PRODUCT) TOP SCH ×3 (08:59→21:00)
[2022-05-05] MEDS: ACETAMINOPHEN 500 MG TAB PO SCH ×3 (08:59→21:37)
[2022-05-05 14:00] VITALS: BP 121/56
[2022-05-05] MEDS: TORSEMIDE 20 MG TAB PO SCH (14:20)
[2022-05-05] MEDS: RIVAROXABAN 20MG TAB (XARELTO) PO SCH (17:21)
[2022-05-05 20:00] VITALS: BP 142/71
[2022-05-05] MEDS: RAMELTEON 8 MG TAB (ROZEREM) PO SCH (21:38)
[2022-05-05] MEDS: ROSUVASTATIN 10 MG TAB (CRESTOR) PO SCH (21:39)
[2022-05-05] MEDS: oxyCODONE 5MG TAB PO PRN (21:40)
[2022-05-06] MEDS: traZODone 25MG PER 1/2 TABLET PO PRN (01:09)
[2022-05-06 06:00] VITALS: BP 125/58
[2022-05-06 06:40] LABS: BASO % 0.6 % (0.0-1.0); EOS # 0.3 10^3/uL (0.0-0.5); EOS % 3.8 % (0.0-3.0); HEMATOCRIT 28.3 % (42.0-52.0); HEMOGLOBIN 8.5 g/dl (13.5-17.5); LYMPH % 15.2 % (24.0-44.0); MEAN CORPUSCULAR HEMOGLOBIN 31.7 pg (27.0-33.0); MEAN CORPUSCULAR VOLUME 105.6 fl (80.0-96.0); MONO # 0.6 10^3/uL (0.0-0.8); MONO % 8.9 % (2.0-8.0); NEUTROPHILS # 4.6 10^3/uL (1.5-8.5); NEUTROPHILS % 70.9 % (36.0-66.0); PLATELET COUNT, AUTOMATED 350 10^3/uL (150-450); RED BLOOD COUNT 2.68 10^6/uL (4.30-6.10); WHITE BLOOD COUNT 6.5 10^3/uL (4.0-10.0)
[2022-05-06] MEDS: oxyCODONE 5MG TAB PO SCH ×2 (06:50→12:20)
[2022-05-06 07:31] LABS: CALCIUM LEVEL 8.2 MG/DL (8.3-10.6); CREATININE FOR GFR 1.26 MG/DL (0.70-1.30); GLOMERULAR FILTRATION RATE 59.6 (>42); POTASSIUM SERUM 3.6 MMOL/L (3.5-5.1)
[2022-05-06] MEDS: DOCUSATE SODIUM 100MG CAPSULE PO SCH ×2 (08:59→20:46)
[2022-05-06] MEDS: FAMOTIDINE 20 MG TAB PO SCH ×2 (08:59→20:39)
[2022-05-06] MEDS: AMIODARONE 100MG TABLET (PACERONE) PO SCH (08:59)
[2022-05-06] MEDS: SENNA 8.6 MG TAB (SENOKOT) PO SCH ×2 (08:59→20:46)
[2022-05-06] MEDS: ACETAMINOPHEN 500 MG TAB PO SCH ×3 (09:00→20:40)
[2022-05-06] MEDS: REMEDY PHYTOPLEX Z-GUARD PASTE 113GM TUBE (FROM STOREROOM PRODUCT) TOP SCH ×3 (09:00→20:46)
[2022-05-06] MEDS: CARVedilol 3.125 MG TAB PO SCH ×2 (09:00→20:45)
[2022-05-06 14:00] VITALS: BP 125/57
[2022-05-06] MEDS: RIVAROXABAN 20MG TAB (XARELTO) PO SCH (18:22)
[2022-05-06 20:00] VITALS: BP 110/62
[2022-05-06] MEDS: RAMELTEON 8 MG TAB (ROZEREM) PO SCH (20:39)
[2022-05-06] MEDS: ROSUVASTATIN 10 MG TAB (CRESTOR) PO SCH (20:39)
[2022-05-06] MEDS: oxyCODONE 5MG TAB PO PRN (20:41)
[2022-05-07] MEDS: traZODone 25MG PER 1/2 TABLET PO PRN (01:04)
[2022-05-07 06:26] VITALS: BP 133/64
[2022-05-07] MEDS: oxyCODONE 5MG TAB PO SCH ×2 (06:49→12:11)
[2022-05-07] MEDS: REMEDY PHYTOPLEX Z-GUARD PASTE 113GM TUBE (FROM STOREROOM PRODUCT) TOP SCH ×3 (09:00→20:17)
[2022-05-07] MEDS: FAMOTIDINE 20 MG TAB PO SCH ×2 (09:09→20:16)
[2022-05-07] MEDS: DOCUSATE SODIUM 100MG CAPSULE PO SCH ×2 (09:09→20:15)
[2022-05-07] MEDS: AMIODARONE 100MG TABLET (PACERONE) PO SCH (09:09)
[2022-05-07] MEDS: CARVedilol 3.125 MG TAB PO SCH ×2 (09:09→20:16)
[2022-05-07] MEDS: SENNA 8.6 MG TAB (SENOKOT) PO SCH ×2 (09:09→20:16)
[2022-05-07] MEDS: ACETAMINOPHEN 500 MG TAB PO SCH ×3 (09:10→20:16)
[2022-05-07 14:00] VITALS: BP 107/51
[2022-05-07] MEDS: RIVAROXABAN 20MG TAB (XARELTO) PO SCH (17:56)
[2022-05-07] MEDS: ROSUVASTATIN 10 MG TAB (CRESTOR) PO SCH (20:16)
[2022-05-07] MEDS: RAMELTEON 8 MG TAB (ROZEREM) PO SCH (20:16)
[2022-05-07 20:33] VITALS: BP 119/58
[2022-05-07] MEDS: oxyCODONE 5MG TAB PO PRN (22:08)
[2022-05-08 05:48] VITALS: BP 121/64
[2022-05-08] MEDS: oxyCODONE 5MG TAB PO SCH ×2 (06:47→11:56)
[2022-05-08 07:17] LABS: BASO # 0.1 10^3/uL (0.0-0.2); BASO % 0.9 % (0.0-1.0); EOS # 0.3 10^3/uL (0.0-0.5); EOS % 5.2 % (0.0-3.0); HEMATOCRIT 28.6 % (42.0-52.0); HEMOGLOBIN 8.5 g/dl (13.5-17.5); LYMPH % 15.8 % (24.0-44.0); MEAN CORPUSCULAR HEMOGLOBIN 31.7 pg (27.0-33.0); MEAN CORPUSCULAR HGB CONC 29.7 g/dl (32.0-36.5); MEAN CORPUSCULAR VOLUME 106.7 fl (80.0-96.0); MONO # 0.8 10^3/uL (0.0-0.8); MONO % 11.6 % (2.0-8.0); NEUTROPHILS # 4.3 10^3/uL (1.5-8.5); PLATELET COUNT, AUTOMATED 346 10^3/uL (150-450); RED BLOOD COUNT 2.68 10^6/uL (4.30-6.10); WHITE BLOOD COUNT 6.5 10^3/uL (4.0-10.0)
[2022-05-08 07:46] LABS: BLOOD UREA NITROGEN 19 MG/DL (9-23); CALCIUM LEVEL 8.3 MG/DL (8.3-10.6); CARBON DIOXIDE LEVEL 31 MMOL/L (20-31); CHLORIDE LEVEL 105 MMOL/L (98-107); CREATININE FOR GFR 1.03 MG/DL (0.70-1.30); GLOMERULAR FILTRATION RATE > 60.0 (>42); GLUCOSE, FASTING 117 MG/DL (74-106); POTASSIUM SERUM 3.8 MMOL/L (3.5-5.1); SODIUM LEVEL 142 MMOL/L (136-145)
[2022-05-08] MEDS: REMEDY PHYTOPLEX Z-GUARD PASTE 113GM TUBE (FROM STOREROOM PRODUCT) TOP SCH ×3 (09:00→21:00)
[2022-05-08] MEDS: AMIODARONE 100MG TABLET (PACERONE) PO SCH (09:38)
[2022-05-08] MEDS: ACETAMINOPHEN 500 MG TAB PO SCH ×3 (09:39→21:34)
[2022-05-08] MEDS: FAMOTIDINE 20 MG TAB PO SCH ×2 (09:39→21:33)
[2022-05-08] MEDS: SENNA 8.6 MG TAB (SENOKOT) PO SCH ×2 (09:39→21:33)
[2022-05-08] MEDS: CARVedilol 3.125 MG TAB PO SCH ×2 (09:39→21:33)
[2022-05-08] MEDS: DOCUSATE SODIUM 100MG CAPSULE PO SCH ×2 (09:39→21:33)
[2022-05-08] MEDS: TORSEMIDE 20 MG TAB PO SCH (18:36)
[2022-05-08] MEDS: RIVAROXABAN 20MG TAB (XARELTO) PO SCH (18:36)
[2022-05-08 19:51] VITALS: BP 115/56
[2022-05-08] MEDS: oxyCODONE 5MG TAB PO PRN (21:32)
[2022-05-08] MEDS: ROSUVASTATIN 10 MG TAB (CRESTOR) PO SCH (21:33)
[2022-05-08] MEDS: RAMELTEON 8 MG TAB (ROZEREM) PO SCH (21:34)
[2022-05-09] MEDS: traZODone 25MG PER 1/2 TABLET PO PRN (01:12)
[2022-05-09 05:31] VITALS: BP 114/55
[2022-05-09] MEDS: oxyCODONE 5MG TAB PO SCH ×3 (06:46→21:36)
[2022-05-09 08:26] VITALS: BP 122/60
[2022-05-09] MEDS: FAMOTIDINE 20 MG TAB PO SCH ×2 (08:28→21:35)
[2022-05-09] MEDS: DOCUSATE SODIUM 100MG CAPSULE PO SCH ×2 (08:28→21:35)
[2022-05-09] MEDS: SENNA 8.6 MG TAB (SENOKOT) PO SCH ×2 (08:29→21:35)
[2022-05-09] MEDS: ACETAMINOPHEN 500 MG TAB PO SCH ×3 (08:29→21:35)
[2022-05-09] MEDS: AMIODARONE 100MG TABLET (PACERONE) PO SCH (08:29)
[2022-05-09] MEDS: CARVedilol 3.125 MG TAB PO SCH ×2 (08:30→21:35)
[2022-05-09] MEDS: REMEDY PHYTOPLEX Z-GUARD PASTE 113GM TUBE (FROM STOREROOM PRODUCT) TOP SCH ×3 (08:30→21:00)
[2022-05-09 14:00] VITALS: BP 114/58
[2022-05-09 15:55] VITALS: BP 114/62
[2022-05-09] MEDS: TORSEMIDE 20 MG TAB PO SCH (15:56)
[2022-05-09] MEDS: RIVAROXABAN 20MG TAB (XARELTO) PO SCH (17:18)
[2022-05-09 20:30] VITALS: BP 134/61
[2022-05-09] MEDS: RAMELTEON 8 MG TAB (ROZEREM) PO SCH (21:35)
[2022-05-09] MEDS: oxyCODONE 5MG TAB PO PRN (21:37)
[2022-05-09] MEDS: ROSUVASTATIN 10 MG TAB (CRESTOR) PO SCH (21:37)
[2022-05-10] MEDS: traZODone 25MG PER 1/2 TABLET PO PRN (01:13)
[2022-05-10 06:00] VITALS: BP 123/60
[2022-05-10] MEDS: oxyCODONE 5MG TAB PO SCH ×2 (06:48→13:03)
[2022-05-10] MEDS: DOCUSATE SODIUM 100MG CAPSULE PO SCH ×2 (08:14→21:17)
[2022-05-10] MEDS: FAMOTIDINE 20 MG TAB PO SCH ×2 (08:15→21:16)
[2022-05-10] MEDS: CARVedilol 3.125 MG TAB PO SCH ×2 (08:15→21:17)
[2022-05-10] MEDS: AMIODARONE 100MG TABLET (PACERONE) PO SCH (08:15)
[2022-05-10] MEDS: SENNA 8.6 MG TAB (SENOKOT) PO SCH ×2 (08:15→21:16)
[2022-05-10] MEDS: ACETAMINOPHEN 500 MG TAB PO SCH ×3 (08:16→21:16)
[2022-05-10] MEDS: REMEDY PHYTOPLEX Z-GUARD PASTE 113GM TUBE (FROM STOREROOM PRODUCT) TOP SCH ×3 (08:16→21:17)
[2022-05-10 14:00] VITALS: BP 116/54
[2022-05-10] MEDS ORDERED: ROSU5TAB5 PO (14:44)
[2022-05-10] MEDS ORDERED: AMIO0.1T PO (14:44)
[2022-05-10] MEDS ORDERED: CARV3.12 PO (14:44)
[2022-05-10] MEDS ORDERED: OXYC-517 PO (14:44)
[2022-05-10] MEDS ORDERED: XARE20TA PO (14:44)
[2022-05-10] MEDS ORDERED: TORS20TA2 PO (14:44)
[2022-05-10] MEDS ORDERED: FAMO1TAB11 PO (14:44)
[2022-05-10] MEDS: TORSEMIDE 20 MG TAB PO SCH (15:16)
[2022-05-10] MEDS: RIVAROXABAN 20MG TAB (XARELTO) PO SCH (17:09)
[2022-05-10 20:00] VITALS: BP 116/56
[2022-05-10] MEDS: RAMELTEON 8 MG TAB (ROZEREM) PO SCH (21:16)
[2022-05-10] MEDS: ROSUVASTATIN 10 MG TAB (CRESTOR) PO SCH (21:17)
[2022-05-10] MEDS: oxyCODONE 5MG TAB PO PRN (21:17)
[2022-05-11] MEDS: traZODone 25MG PER 1/2 TABLET PO PRN (01:39)
[2022-05-11] MEDS: oxyCODONE 5MG TAB PO SCH (06:50)
[2022-05-11] MEDS: REMEDY PHYTOPLEX Z-GUARD PASTE 113GM TUBE (FROM STOREROOM PRODUCT) TOP SCH (09:00)
[2022-05-11 09:05] VITALS: BP 116/56
[2022-05-11] MEDS: DOCUSATE SODIUM 100MG CAPSULE PO SCH (09:05)
[2022-05-11] MEDS: CARVedilol 3.125 MG TAB PO SCH (09:05)
[2022-05-11] MEDS: AMIODARONE 100MG TABLET (PACERONE) PO SCH (09:06)
[2022-05-11] MEDS: ACETAMINOPHEN 500 MG TAB PO SCH (09:06)
[2022-05-11] MEDS: FAMOTIDINE 20 MG TAB PO SCH (09:06)
[2022-05-11] MEDS: SENNA 8.6 MG TAB (SENOKOT) PO SCH (09:06)
== END 2022-05-11 12:00 | disposition home health service (06) | DRG 560 ==
LOC: M PM&R 14:27
PROVIDERS: ADMIT Physical Medicine & Rehabilitation; ATTEND Physical Medicine & Rehabilitation
DX: S72.141D Displaced intertrochanteric fracture of right femur, subsequent encounter for closed fracture with routine healing (principal); I50.32 Chronic diastolic (congestive) heart failure; I47.20 Ventricular tachycardia, unspecified; I95.9 Hypotension, unspecified; I48.0 Paroxysmal atrial fibrillation; I25.10 Atherosclerotic heart disease of native coronary artery without angina pectoris; D64.9 Anemia, unspecified; K21.9 Gastro-esophageal reflux disease without esophagitis; I11.0 Hypertensive heart disease with heart failure; G47.33 Obstructive sleep apnea (adult) (pediatric); E78.5 Hyperlipidemia, unspecified; M25.551 Pain in right hip; R73.03 Prediabetes; Z74.09 Other reduced mobility; Z74.1 Need for assistance with personal care; Z95.810 Presence of automatic (implantable) cardiac defibrillator; Z79.01 Long term (current) use of anticoagulants; Z98.49 Cataract extraction status, unspecified eye

== ENCOUNTER → 2022-05-20 | Outpatient (CLI) | payer MEDICARE, OTHER ==
[~2022-05-20] MED LIST changes: +AMIO0.1T PO; +CARV3.12 PO; +OXYC-517 PO
== END ==
LOC: M SOG 11:37
PROVIDERS: ATTEND Orthopaedic Surgery Adult Reconstructive Orthopaedic Surgery
DX: M25.552 Pain in left hip (principal); M16.12 Unilateral primary osteoarthritis, left hip; Z87.81 Personal history of (healed) traumatic fracture

== ENCOUNTER → 2024-07-21 | Outpatient (REF) | payer MEDICARE, OTHER ==
[~2024-07-21] MED LIST changes: +RAMI10CA64 PO; -RAMI1CAP26 PO; +ROSU5TAB49 PO; -ROSU5TAB5 PO
== END ==
LOC: M SFHCDERM 17:59
PROVIDERS: ATTEND Nurse Practitioner Family
DX: B07.8 Other viral warts (principal)

== ENCOUNTER → 2025-03-12 | Outpatient (CLI) | payer MEDICARE, OTHER ==
[~2025-03-12] MED LIST changes: -AMIO200T49 PO; +AMIO200T54 PO
== END ==
LOC: M PLAIMG 15:18
PROVIDERS: ATTEND Internal Medicine Cardiovascular Disease
DX: I47.20 Ventricular tachycardia, unspecified (principal)